=== PATIENT | male | born 1940 | race Caucasian/White ===

== ENCOUNTER → 2019-09-17 | Outpatient (CLI) | payer MEDICARE, OTHER ==
--- NOTE | 2019-09-18 09:10 | RADIOLOGY REPORT (SQ) ---
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 TECHNIQUE: Static and realtime castillo scale imaging of the scrotum and testes. Selected color Doppler and spectral images recorded to document blood flow. LIMITATIONS: None. FINDINGS: RIGHT: TESTICLE: Normal size. Normal echotexture. Normal blood flow. No mass. EPIDIDYMIS: Small 4 mm cyst. HYDROCELE OR VARICOCELE: Hydrocele. HERNIA OR EXTRA-TESTICULAR MASS: No. OTHER: No other significant finding. LEFT: TESTICLE: Normal size. Normal echotexture. Normal blood flow. No mass. EPIDIDYMIS: Small 3 mm cyst. HYDROCELE OR VARICOCELE: Hydrocele. Varicocele. HERNIA OR EXTRA-TESTICULAR MASS: No. OTHER: No other significant finding. IMPRESSION: 1. BILATERAL HYDROCELES. VARICOCELE ON THE LEFT. 2. SMALL EPIDIDYMAL CYSTS. 3. NORMAL TESTICULAR ULTRASOUND. NO EVIDENCE OF TESTICULAR MASS OR TORSION. TECHNICAL DOCUMENTATION: JOB ID: [id number] [employer]- All Rights Reserved Reading location - IP/workstation name: [email or web address]
== END ==
LOC: RAD 17:29
PROVIDERS: ATTEND Physician Assistant
DX: I86.1 Scrotal varices (principal); N50.3 Cyst of epididymis; N43.3 Hydrocele, unspecified
CPT/HCPCS: 76870

== ENCOUNTER 2020-06-21 08:24 | Inpatient (IN) | payer MEDICARE ==
--- NOTE | 2020-06-21 08:56 | RADIOLOGY REPORT (SQ) ---
EXAM DESCRIPTION: CHEST SINGLE VIEW IMAGES COMPLETED DATE/TIME: 06/21/2020 7:37 am REASON FOR STUDY: bed 16 chest pain COMPARISON: None. EXAM PARAMETERS: NUMBER OF VIEWS: One view. TECHNIQUE: Single frontal radiographic view of the chest acquired. RADIATION DOSE: NA LIMITATIONS: None. FINDINGS: LUNGS AND PLEURA: Lungs are hyperinflated. No focal consolidation or pleural effusion. N o pneumothorax. MEDIASTINUM AND HILAR STRUCTURES: No masses. Contour normal. HEART AND VASCULAR STRUCTURES: Heart normal in size. Normal vasculature. BONES: No acute findings. HARDWARE: None in the chest. OTHER: No other significant finding. IMPRESSION: NO ACUTE RADIOGRAPHIC FINDING IN THE CHEST. TECHNICAL DOCUMENTATION: JOB ID: [id number] 2010 [employer] All Rights Reserved Reading location - IP/workstation name: [email or web address]
[2020-06-21 08:58] LABS: ABSOLUTE EOSINOPHILS # (AUTO) 0.5 10^3/uL (0.0-0.6); ABSOLUTE LYMPHOCYTES (AUTO) 1.9 10^3/uL (0.5-4.7); ABSOLUTE MONOCYTES (AUTO) 0.8 10^3/uL (0.1-1.4); ABSOLUTE NEUT (AUTO) 3.8 10^3/uL (1.7-8.2); BASOPHILS % (AUTO) 0.7 % (0-2); EOSINOPHILS % (AUTO) 6.9 % (0-6); HEMATOCRIT 36.3 % (37.9-51.0); HEMOGLOBIN 12.1 g/dL (13.5-17.0); LYMPHOCYTES % (AUTO) 27.4 % (13-45); MEAN CORPUSCULAR HEMOGLOBIN 27.9 pg (27.0-33.4); MEAN CORPUSCULAR HGB CONC 33.4 g/dL (32.0-36.0); MEAN CORPUSCULAR VOLUME 83 fl (80-97); MONOCYTES % (AUTO) 11.7 % (3-13); PLATELET COUNT 185 10^3/uL (150-450); RED BLOOD COUNT 4.36 10^6/uL (4.35-5.55); RED CELL DISTRIBUTION WIDTH 14.9 % (11.5-14.0); SEGMENTED NEUTROPHILS % (AUTO) 53.3 % (42-78); TOTAL CELLS COUNTED % (AUTO) 100 %; WHITE BLOOD COUNT 7.1 10^3/uL (4.0-10.5)
[2020-06-21 09:16] LABS: ALBUMIN 3.6 g/dL (3.5-5.0); CARBON DIOXIDE 26 mmol/L (22-30)
[2020-06-21 09:19] LABS: ANION GAP 5 (5-19); CHLORIDE 106 mmol/L (98-107)
[2020-06-21 09:20] LABS: ALKALINE PHOSPHATASE 56 U/L (38-126); ASPARTATE AMINO TRANSFERASE 26 U/L (17-59); BILIRUBIN,DIRECT 0.2 mg/dL (0.0-0.4); BILIRUBIN,TOTAL 1.3 mg/dL (0.2-1.3); BLOOD UREA NITROGEN 23 mg/dL (7-20); CREATINE KINASE 126 U/L (55-170); GLUCOSE 106 mg/dL (75-110); POTASSIUM 3.9 mmol/L (3.6-5.0)
[2020-06-21 09:29] LABS: CREATINE KINASE MB 1.95 ng/mL (<4.55); TROPONIN I 0.021 ng/mL
--- NOTE | 2020-06-21 10:46 | ER Document Report ---
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 He does follow a local primary care physician Dr. Elvira Ruiz. Patient states last night he was making a pie and felt some diaphoresis nausea, vomiting, and some anterior chest discomfort. It lasted only 1-1/2-hour. No shortness of breath, radiation to the arm, calf pain or leg swelling. No recent trips or travel. Patient states he had similar discomfort transiently this morning as well. No vomiting or diaphoresis at that time. He did take 325 aspirin. Patient feels much better. ROS: See HPI All other review of systems reviewed and otherwise negative Reviewed vital signs and nursing note as charted by RN. PHYSICAL EXAM: CONSTITUTIONAL: Alert and oriented and responds appropriately to questions. Well-appearing; well-nourished HEAD: Normocephalic; atraumatic EYES: PERRL; Conjunctivae clear, sclerae non-icteric CARD: Regular rate and rhythm; no murmurs; symmetric distal pulses RESP: Normal chest excursion without splinting or tachypnea; breath sounds clear and equal bilaterally ABD/GI: Normal bowel sounds; non-distended; soft, non-tender BACK: The back appears normal and is non-tender to palpation EXT: Normal ROM in all joints; non-tender to palpation; no edema SKIN: No acute lesions noted NEURO: CN 2-12 intact; 5/5 bilateral upper and lower extremity strength with sensation intact to light touch PSYCH: The patient's mood and manner are appropriate. Grooming and personal hygiene are appropriate. TRAVEL OUTSIDE OF THE [place] IN LAST 30 DAYS: No - Related Data Allergies/Adverse Reactions: acetaminophen [From Vicodin] Allergy (Verified 06/21/20 08:51) hydrocodone [From Vicodin] Allergy (Verified 06/21/20 08:51) Past Medical History - Social History Smoking Status: Unknown if Ever Smoked Family History: Reviewed & Not Pertinent Past Surgical History: Reports: Hx Cardiac Catheterization, Hx Cardiac Surgery - bypass Physical Exam - Vital signs Vitals: Resp Pulse Ox 12 93 06/21/20 08:40 06/21/20 08:40 Course - Re-evaluation Re-evalutation: Given the above history and physical examination, with a good story for ACS, we will obtain a cardiac panel, EKG, x-ray of the chest, and reassess. Given the patient's history as well as vital signs I do believe PE and dissection to be unlikely. Patient is currently chest pain-free. 06/21/20 10:44 Initial labs as recorded. The primary care physician is already come down to see the patient. Initial troponin as recorded. He would like a repeat troponin ordered at 1127 and if relatively unchanged, patient will be admitted to the [facility]. - Vital Signs Vital signs: Temp Pulse Resp BP Pulse Ox 97.5 F 12 121/67 97 06/21/20 08:51 06/21/20 10:01 06/21/20 10:01 06/21/20 08:51 - Laboratory Result Diagrams: 06/21/20 08:46 06/21/20 08:46 Laboratory results interpreted by me: 06/21/20 06/21/20 08:46 08:46 Hgb 12.1 L Hct 36.3 L RDW 14.9 H Eos % (Auto) 6.9 H Sodium 136.9 L BUN 23 H Creatinine 1.28 H Est GFR (MDRD) Non-Af 54 L Total Protein 6.0 L Discharge - Discharge Clinical Impression: Chest pain Qualifiers: Chest pain type: precordial pain Qualified Code(s): R07.2 - Precordial pain Condition: Good Disposition: ADMITTED INPATIENT Admitting Provider: Chauncey Unit Admitted: [facility] Referrals: VICTORINO RUIZ MD [Primary Care Provider] - Follow up as needed
[2020-06-21] MEDS ORDERED: IPRATROPIUM/ALBUTEROL 0.5-2.5 MG/3 ML AMPUL NEB PRN (12:29)
--- NOTE | 2020-06-21 12:49 | PDOC H&P ---
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 [place] with a history of the hypertension hyperlipidemia came to the emergency department with a complaint with chest pain and diaphoretic since yesterday According to the patient he ate yesterday some pie and other food and patient snorted the chest pain and not feeling well Patient's call the EMS and the patient is received the nitro in the emergency department patient's will do all the pain Patient is to have a stress test was done 2 years back at [place] according to the patient was all normal Patient usually lives in the [place] lasting seen in the office more than a year Patient has a history of the COPD patient is currently denied any cough no congestions no fever no chills No contact with any COVID Patient initial chest x-ray is negative cardiac enzymes the first was was normal second was slightly elevated no acute EKG changes At this point decided to admit the patient's with the significant risk factor for the coronary disease to rule out acute coronary syndromes Past Medical History Cardiac Medical History: Reports: Coronary Artery Disease, Myocardial Infarction, Hyperlipidema, Hypertension Pulmonary Medical History: Reports: Chronic Obstructive Pulmonary Disease (COPD) GI Medical History: Reports: Gastroesophageal Reflux Disease Past Surgical History Past Surgical History: Reports: Cardiac Catheterization, Coronary Artery Bypass Graft Social History Information Source: Patient Smoking Status: Unknown if Ever Smoked Electronic Cigarette use?: No Frequency of Alcohol Use: Occasional Hx Recreational Drug Use: No Family History Family History: Reviewed & Not Pertinent Parental Family History Reviewed: Yes Children Family History Reviewed: Yes Sibling(s) Family History Reviewed.: Yes Medication/Allergy Allergies/Adverse Reactions: acetaminophen [From Vicodin] Allergy (Verified 06/21/20 08:51) hydrocodone [From Vicodin] Allergy (Verified 06/21/20 08:51) Review of Systems Constitutional: ABSENT: chills, fever(s), headache(s), weight gain, weight loss Eyes: ABSENT: visual disturbances Ears: ABSENT: hearing changes Cardiovascular: PRESENT: chest pain. ABSENT: dyspnea on exertion, edema, orthropnea, palpitations Respiratory: ABSENT: cough, hemoptysis Gastrointestinal: ABSENT: abdominal pain, constipation, diarrhea, hematemesis, hematochezia, nausea, vomiting Genitourinary: ABSENT: dysuria, hematuria Musculoskeletal: ABSENT: joint swelling Integumentary: ABSENT: rash, wounds Neurological: ABSENT: abnormal gait, abnormal speech, confusion, dizziness, focal weakness, syncope Psychiatric: ABSENT: anxiety, depression, homidical ideation, suicidal ideation Endocrine: ABSENT: cold intolerance, heat intolerance, menstrual abnormalities, polydipsia, polyuria Hematologic/Lymphatic: ABSENT: easy bleeding, easy bruising, lymphadenopathy Physical Exam Vital Signs: Temp Pulse Resp BP Pulse Ox 97.5 F 16 116/72 100 06/21/20 08:51 06/21/20 11:01 06/21/20 11:01 06/21/20 11:01 Intake & Output 06/20/20 06/21/20 06/22/20 06:59 06:59 06:59 Weight 72.575 kg General appearance: PRESENT: no acute distress, well-developed, well-nourished Head exam: PRESENT: atraumatic, normocephalic Eye exam: PRESENT: conjunctiva pink, EOMI, PERRLA. ABSENT: scleral icterus Ear exam: PRESENT: normal external ear exam Mouth exam: PRESENT: moist, tongue midline Neck exam: PRESENT: full ROM. ABSENT: carotid bruit, JVD, lymphadenopathy, thyromegaly Respiratory exam: PRESENT: clear to auscultation gallo Cardiovascular exam: PRESENT: RRR. ABSENT: diastolic murmur, rubs, systolic murmur Pulses: PRESENT: normal dorsalis pedis pul, +2 pedal pulses bilateral Vascular exam: PRESENT: normal capillary refill GI/Abdominal exam: PRESENT: normal bowel sounds, soft. ABSENT: distended, guarding, mass, organolmegaly, rebound, tenderness Rectal exam: PRESENT: deferred Musculoskeletal exam: PRESENT: ambulatory Neurological exam: PRESENT: alert, awake, oriented to person, oriented to place, oriented to time, oriented to situation, CN II-XII grossly intact. ABSENT: motor sensory deficit Psychiatric exam: PRESENT: appropriate affect, normal mood. ABSENT: homicidal ideation, suicidal ideation Skin exam: PRESENT: dry, intact, warm. ABSENT: cyanosis, rash Results Laboratory Results: 06/21/20 08:46 06/21/20 08:46 06/21/20 06/21/20 08:46 08:46 WBC 7.1 RBC 4.36 Hgb 12.1 L Hct 36.3 L MCV 83 MCH 27.9 MCHC 33.4 RDW 14.9 H Plt Count 185 Seg Neutrophils % 53.3 Sodium 136.9 L Potassium 3.9 Chloride 106 Carbon Dioxide 26 Anion Gap 5 BUN 23 H Creatinine 1.28 H Est GFR ( Amer) > 60 Glucose 106 Calcium 9.0 Total Bilirubin 1.3 AST 26 Alkaline Phosphatase 56 Total Protein 6.0 L Albumin 3.6 06/21/20 06/21/20 06/21/20 08:46 08:46 11:35 Creatine Kinase 126 CK-MB (CK-2) 1.95 Troponin I 0.021 0.069 Impressions: Chest X-Ray 06/21/20 08:27 IMPRESSION: NO ACUTE RADIOGRAPHIC FINDING IN THE CHEST. Assessment & Plan - Diagnosis (1) Coronary artery disease Qualifiers: Coronary Disease-Associated Artery/Lesion type: bypass graft Associated angina: without angina Is this a current diagnosis for this admission?: Yes Plan: Admit the patient in IMCU consult the cardiology (2) Chronic obstructive pulmonary disease Qualifiers: COPD type: unspecified COPD Qualified Code(s): J44.9 - Chronic obstructive pulmonary disease, unspecified Is this a current diagnosis for this admission?: Yes Plan: Continues on nebulizer treatments as needed (3) Hypertension Qualifiers: Hypertension type: essential hypertension Qualified Code(s): I10 - Essential (primary) hypertension Is this a current diagnosis for this admission?: Yes Plan: Currently all stable (4) Chest pain Qualifiers: Chest pain type: precordial pain Qualified Code(s): R07.2 - Precordial pain Is this a current diagnosis for this admission?: Yes Plan: Admit the patient on IMCU for rule out the acute coronary syndromes consult cardiology - Time Time Spent: 50 to 70 Minutes Medications reviewed and adjusted accordingly: Yes Anticipated Discharge Disposition: Home, Self Care Anticipated Discharge Timeframe: within 48 hours - Inpatient Certification Based on my medical assessment, after consideration of the patient's comorbidities, presenting symptoms, or acuity I expect that the services needed warrant INPATIENT care.: Yes I certify that my determination is in accordance with my understanding of Medicare's requirements for reasonable and necessary INPATIENT services [42 CFR 412.3e].: Yes Medical Necessity: Need Close Monitoring Due to Risk of Patient Decompensation, Need for Nebulizer Therapy and Monitoring of Response Post Hospital Care: D/C Interventional Pain Physician Documentation - Plan Summary Plan Summary: Admit the patient in IMCU see MD orders
[2020-06-21] MEDS ORDERED: ENOXAPARIN SODIUM INJ 40 MG/0.4 ML DISP.SYRIN SUBCUT SCH (14:00)
[2020-06-21] MEDS ORDERED: TRAMADOL HCL 50 MG TABLET PO PRN (15:00)
[2020-06-21] MEDS ORDERED: (PENDING PHARMACY ID) (Albuterol Sulfate 2 PUFF) IH PRN (15:00)
[2020-06-21] MEDS ORDERED: ALBUTEROL SULFATE HFA (90 MCG/PUFF) 8 GM MDI IH PRN (15:06)
[2020-06-21] MEDS ORDERED: PANTOPRAZOLE SODIUM 40 MG TABLET.DR PO SCH (17:00)
[2020-06-21] MEDS ORDERED: METOPROLOL TARTRATE 50 MG TABLET PO SCH (18:00)
[2020-06-21 18:53] LABS: CREATINE KINASE MB 9.7 ng/mL (<4.55)
[2020-06-21 18:55] LABS: TROPONIN I 0.645 ng/mL
[2020-06-21] MEDS ORDERED: ENOXAPARIN SODIUM INJ 80 MG/0.8 ML DISP.SYRIN SUBCUT ONE (19:30)
--- NOTE | 2020-06-21 20:20 | EKG REPORT ---
SEVERITY:- ABNORMAL ECG - SINUS RHYTHM CONSIDER ANTEROSEPTAL INFARCT BORDERLINE T ABNORMALITIES, INFERIOR LEADS : Confirmed by: Quyen Golden 21-Jun-2020 20:19:53
--- NOTE | 2020-06-21 20:36 | PDOC CONSULTATION ---
Consultation-Blank Consultation: CARDIOLOGY CONSULTATION by Dr. Feli Lacey on 06/21/2020. Patient seen initially at 1 PM and subsequently again at 7:30 PM. 60 minutes spent as patient more than 50% of time spent in direct patient care. REASON FOR CONSULTATION: Chest pain and non-ST elevation WA. CONSULT REQUESTING PHYSICIAN: Dr. Grossman. HISTORY OF PRESENT ILLNESS: Patient is 79-year-old male with known history of coronary artery disease, old myocardial infarction 2006 after which he had a catheterization and this led to a coronary bypass graft surgery in clinic to correct. States that last night he ate something and subsequently had some epigastric discomfort comfort with nausea and vomiting. There was no hemoptysis. The details of the coronary artery bypass graft surgery is not known. There are no vein markers and the chest x-ray and hence cannot be sure as to how many coronary arteries were bypassed. Who is been free of anginal symptoms states that last night he ate something and after dinner felt discomfort in his epigastrium and had nausea and vomited once. He states there was no hematemesis or armand blood in his vomitus. Subsequently the patient had left front of the chest tightness and discomfort which radiated to the left shoulder. The episode started after the patient had severe diaphoresis. There is no shortness of breath palpitations. 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 On the way to the hospital he was given 3 sublingual nitroglycerin sprays and after the third 5 minutes later he was chest pain-free. His EKG shows some minor nonspecific changes and poor R wave progression leads V1 to V4 probably secondary to old anterior WA. The patient initial troponin I was negative and subsequently came positive for a non-ST elevation WA at 0.654. At present the patient is chest pain-free since admission. He denies shortness of breath PND orthopnea palpitations or syncope or near syncope. The patient states that about a year and a half ago in [facility] he had a stress test and was advised to continue medical treatment and did not need any percutaneous intervention. He has no history of COPD or asthma. He has no history of sleep apnea. There is no history of palpitations syncope or heart failure. There is no palpitations. There is no history of diabetes mellitus or thyroid disease. There is a history of hyperlipidemia and depression. The depression is well controlled with medication. He has no symptoms suggestive of COVID infectiion. The patient has had no contact with COVID positive patients. Past Medical History Cardiac Medical History: Reports: Coronary Artery Disease, Myocardial Infarction, Hyperlipidema, Hypertension Pulmonary Medical History: Reports: Chronic Obstructive Pulmonary Disease (COPD) GI Medical History: Reports: Gastroesophageal Reflux Disease Past Surgical History Past Surgical History: Reports: Cardiac Catheterization, Coronary Artery Bypass Graft Albuterol Sulfate [Proair Hfa Inhalation Aerosol 8.5 gm Mdi] 2 puff IH Q6HP PRN 06/21/20 Amlodipine Besylate [Norvasc 5 mg Tablet] 5 mg PO DAILY 06/21/20 Aspirin [Adult Aspirin Regimen] 81 mg PO DAILY 06/21/20 Escitalopram Oxalate [Lexapro 10 mg Tablet] 10 mg PO DAILY 06/21/20 Metoprolol Tartrate [Lopressor] 50 mg PO BID 06/21/20 Pravastatin Sodium 40 mg PO DAILY 06/21/20 Tramadol HCl [Ultram] 50 mg PO DAILYP PRN 06/21/20 Social History Information Source: Patient Smoking Status: He has never smoked. Electronic Cigarette use?: No Frequency of Alcohol Use: Occasional Hx Recreational Drug Use: No RESUSCITATION STATUS: The patient is a full code. His son is his surrogate healthcare decision maker. Family History Family History: Positive for hypertension. No history of coronary artery disease in the parents. Parental Family History Reviewed: Yes Children Family History Reviewed: Yes Sibling(s) Family History Reviewed.: Yes Medication/Allergy Allergies/Adverse Reactions: acetaminophen [From Vicodin] Allergy (Verified 06/21/20 08:51) .hydrocodone [From Vicodin] Allergy (Verified 06/21/20 08:51) Current Medications Generic Name Dose Route Start Last Admin Trade Name Freq PRN Reason Stop Dose Admin Albuterol 2 puff 06/21/20 15:06 Ventolin Hfa 8 Gm Mdi IH 07/21/20 15:05 Q6HP PRN WHEEZING Albuterol/Ipratropium 3 ml 06/21/20 12:29 Duoneb 3 Ml Ampul NEB 07/21/20 12:28 RTQ6HP PRN SHORTNESS OF BREATH Amlodipine Besylate 5 mg 06/22/20 10:00 Norvasc 5 Mg Tablet PO 07/22/20 09:59 DAILY [facility] Aspirin 81 mg 06/22/20 10:00 Ecotrin 81 Mg Ec Tablet PO 07/22/20 09:59 DAILY [facility] Atorvastatin Calcium 10 mg 06/21/20 22:00 06/21/20 22:18 Lipitor 10 Mg Tablet PO 07/21/20 21:59 10 mg QHS YASMIN Administration Enoxaparin Sodium 80 mg 06/22/20 06:00 Lovenox Inj 80 Mg/0.8 Ml Disp.Syrin SUBCUT 07/22/20 05:59 Q12A [facility] Escitalopram Oxalate 10 mg 06/22/20 10:00 Lexapro 10 Mg Tablet PO 07/22/20 09:59 DAILY [facility] Metoprolol Tartrate 50 mg 06/21/20 18:00 06/21/20 17:09 Lopressor 50 Mg Tablet PO 07/21/20 17:59 50 mg BID YASMIN Administration Pantoprazole Sodium 40 mg 06/21/20 17:00 06/21/20 17:[address] Tablet PO 07/21/20 16:59 40 mg BID@0600,1700 YASMIN Administration Tramadol HCl 50 mg 06/21/20 15:00 Ultram 50 Mg Tablet PO 06/28/20 14:59 DAILYP PRN FOR PAIN Discontinued Medications Generic Name Dose Route Start Last Admin Trade Name Freq PRN Reason Stop Dose Admin Enoxaparin Sodium 40 mg 06/21/20 14:00 06/21/20 16:43 Lovenox Inj 40 Mg/0.4 Ml Disp.Syrin SUBCUT 07/21/20 13:59 Not Given DAILY [facility] Enoxaparin Sodium 80 mg 06/21/20 19:30 06/21/20 20:30 Lovenox Inj 80 Mg/0.8 Ml Disp.Syrin SUBCUT 06/21/20 19:31 80 mg NOW ONE Administration Review of Systems Constitutional: ABSENT: chills, fever(s), headache(s), weight gain, weight loss Eyes: ABSENT: visual disturbances Ears: ABSENT: hearing changes Cardiovascular: PRESENT: chest pain. ABSENT: dyspnea on exertion, edema, orthropnea, palpitations Respiratory: ABSENT: cough, hemoptysis Gastrointestinal: ABSENT: abdominal pain, constipation, diarrhea, hematemesis, hematochezia, nausea, vomiting Genitourinary: ABSENT: dysuria, hematuria Musculoskeletal: ABSENT: joint swelling Integumentary: ABSENT: rash, wounds Neurological: ABSENT: abnormal gait, abnormal speech, confusion, dizziness, focal weakness, syncope Psychiatric: ABSENT: anxiety, depression, homidical ideation, suicidal ideation Endocrine: ABSENT: cold intolerance, heat intolerance, menstrual abnormalities, polydipsia, polyuria Hematologic/Lymphatic: ABSENT: easy bleeding, easy bruising, lymphadenopathy PHYSICAL EXAMINATION: The patient is well-built and well-nourished in no acute distress. At present patient is chest pain-free. HEAD: Head is atraumatic normocephalic. Eyes: Pupils are equal round regular reactive light accommodation extraocular Selected Entries 06/21/20 06/21/20 19:35 20:00 Temperature 98.4 F Temperature Oral Source Pulse Rate 58 L Heart Rate ( 62 Monitors) Respiratory 16 Rate Blood Pressure 139/54 H Blood Pressure 82 Mean BP Location Right Arm BP Position Supine O2 Sat by Pulse 100 Oximetry Oxygen Delivery Room Air Method movements are normal there is no congenital pallor there is no scleral icterus. Ears: External auditory canals are clear, there are no lesions of the pinna. Nose: No deviated nasal septum and no inflammation of the nasal mucous membrane. Mouth: Mucous membranes of mouth are moist tongue is moist there is no ulcers there is no bleeding from the gums. Throat: There is no redness of the oropharynx there is no exudates. Skin: There is no petechia or ecchymosis there is no skin lesions or skin rashes. Neck: Neck is supple there is no JVD caroti ds equal there is no bruit there is no lymphadenopathy there is no neck stiffness. There is no goiter trachea central lungs: Lungs are clear to auscultation percussion there is no accessory muscles of respiration in use. There is no rhonchi rales or wheezing. There is no chest wall tenderness. HEART: S1-S2 is heard there is no S3 gallop there is no S4 gallop S1 is of normal intensity. There is no rub. The systolic murmur in the left sternal border and apex without radiation. Abdomen: Abdomen is soft nontender there is no paraspinal megaly bowel sounds well heard there is no tender areas of masses. There is no rebound guarding or rigidity. Extremities: Femorals are well felt there is no femoral bruits neck pulses are well felt there is no pedal edema there is no DVT or cellulitis there is no cyanosis or clubbing there is no DVT or cellulitis. There is no calf tenderness. 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 Psychiatric: The patient judgment and insight are intact and her affect is normal. ekg #1: Sinus rhythm. Probable old anteroseptal WA. Minor borderline nonspecific T changes inferior leads. The patient second EKG is unchanged except for interpolated PVC. Labs- Entire Visit 06/21/20 06/21/20 06/21/20 08:46 08:46 08:46 WBC 7.1 RBC 4.36 Hgb 12.1 L Hct 36.3 L MCV 83 MCH 27.9 MCHC 33.4 RDW 14.9 H Plt Count 185 Lymph % (Auto) 27.4 Walker % (Auto) 11.7 Eos % (Auto) 6.9 H Baso % (Auto) 0.7 Absolute Neuts (auto) 3.8 Absolute Lymphs (auto) 1.9 Absolute Monos (auto) 0.8 Absolute Eos (auto) 0.5 Absolute Basos (auto) 0.0 Seg Neutrophils % 53.3 Sodium 136.9 L Potassium 3.9 Chloride 106 Carbon Dioxide 26 Anion Gap 5 BUN 23 H Creatinine 1.28 H Est GFR ( Amer) > 60 Est GFR (MDRD) Non-Af 54 L Glucose 106 Calcium 9.0 Total Bilirubin 1.3 Direct Bilirubin 0.2 Neonat Total Bilirubin Not Reportable Neonat Direct Bilirubin Not Reportable Neonat Indirect Bili Not Reportable AST 26 ALT 18 Alkaline Phosphatase 56 Creatine Kinase 126 CK-MB (CK-2) 1.95 Troponin I 0.021 Total Protein 6.0 L Albumin 3.6 06/21/20 06/21/20 06/21/20 11:35 11:35 11:35 WBC RBC Hgb Hct MCV MCH MCHC RDW Plt Count Lymph % (Auto) Walker % (Auto) Eos % (Auto) Baso % (Auto) Absolute Neuts (auto) Absolute Lymphs (auto) Absolute Monos (auto) Absolute Eos (auto) Absolute Basos (auto) Seg Neutrophils % Sodium Potassium Chloride Carbon Dioxide Anion Gap BUN Creatinine Est GFR ( Amer) Est GFR (MDRD) Non-Af Glucose Calcium Total Bilirubin Direct Bilirubin Neonat Total Bilirubin Neonat Direct Bilirubin Neonat Indirect Bili AST ALT Alkaline Phosphatase Creatine Kinase 113 CK-MB (CK-2) 2.07 Troponin I 0.069 Cancelled Total Protein Albumin 06/21/20 06/21/20 18:09 18:09 WBC RBC Hgb Hct MCV MCH MCHC RDW Plt Count Lymph % (Auto) Walker % (Auto) Eos % (Auto) Baso % (Auto) Absolute Neuts (auto) Absolute Lymphs (auto) Absolute Monos (auto) Absolute Eos (auto) Absolute Basos (auto) Seg Neutrophils % Sodium Potassium Chloride Carbon Dioxide Anion Gap BUN Creatinine Est GFR ( Amer) Est GFR (MDRD) Non-Af Glucose Calcium Total Bilirubin Direct Bilirubin Neonat Total Bilirubin Neonat Direct Bilirubin Neonat Indirect Bili AST ALT Alkaline Phosphatase Creatine Kinase 155 CK-MB (CK-2) 9.70 H Troponin I 0.645 Total Protein Albumin Chest X-Ray 06/21/20 08:27 IMPRESSION: NO ACUTE RADIOGRAPHIC FINDING IN THE CHEST. IMPRESSION/RECOMMENDATION: 1. Non-ST elevation WA. In view of prior history of WA and coronary artery bypass graft surgery patient higher risk than normal. Hence strongly recommend cardiac catheterization. We will continue current medications as the patient is pain-free. But will increase the patient's Lovenox to 1 mg/kg subcutaneously every 12 hours and arrange for transfer to tertiary care center which is why. Patient agreeable. This is the risk benefits and risks and perceived cardiac catheterization have been discussed in detail with the patient. 2. Coronary artery disease. History of old WA. Recent unstable anginal symptoms. This culminated in a non-ST relation WA this admission. 3. Coronary bypass graft surgery: Records awaited from [facility]. 4. Hypertension: Blood pressure well controlled 5. Hyperlipidemia: Continue statin 6. Depression: Currently appears to be asymptomatic on medication. Medications reviewed. Medications adjusted and added. Medical regimen and management plan discussed with attending provider on the case. The case has been discussed in detail with the patient including the troponin elevation consistent with non-ST relation WA. The case has been discussed with the [employer] dehydrogenation converter helper at [facility] in [place]. He has been accepted for transfer. The patient will follow-up with me in the office after his discharge after cardiac catheterization at [facility]. Medical decision making is of high complexity. 60 minutes spent as patient more than 50% time spent on direct patient care.
--- NOTE | 2020-06-21 21:23 | PDOC TRANSFER SUMMARY ---
General Admission Date/PCP: 06/21/20 11:06 VICTORINO RUIZ MD Admission Date: 06/21/20 Transfer Date: 06/21/20 Accepting Facility: [facility] Resuscitation Status: Full Code - Transfer Diagnosis (1) Non-ST elevated myocardial infarction (non-STEMI) Is this a current diagnosis for this admission?: Yes (2) Coronary artery disease Is this a current diagnosis for this admission?: Yes (3) Chronic obstructive pulmonary disease Is this a current diagnosis for this admission?: Yes (4) Hypertension Is this a current diagnosis for this admission?: Yes (5) Chest pain Is this a current diagnosis for this admission?: Yes - Transfer Medications Home Medications: Albuterol Sulfate [Proair Hfa Inhalation Aerosol 8.5 gm Mdi] 2 puff IH Q6HP PRN 06/21/20 Amlodipine Besylate [Norvasc 5 mg Tablet] 5 mg PO DAILY 06/21/20 Aspirin [Adult Aspirin Regimen] 81 mg PO DAILY 06/21/20 Escitalopram Oxalate [Lexapro 10 mg Tablet] 10 mg PO DAILY 06/21/20 Metoprolol Tartrate [Lopressor] 50 mg PO BID 06/21/20 Pravastatin Sodium 40 mg PO DAILY 06/21/20 Tramadol HCl [Ultram] 50 mg PO DAILYP PRN 06/21/20 Transfer Medications: Current Medications Albuterol (Ventolin Hfa 8 Gm Mdi) 2 puff IH Q6HP PRN PRN Reason: WHEEZING Stop: 07/21/20 15:05 Albuterol/Ipratropium (Duoneb 3 Ml Ampul) 3 ml NEB RTQ6HP PRN PRN Reason: SHORTNESS OF BREATH Stop: 07/21/20 12:28 Amlodipine Besylate (Norvasc 5 Mg Tablet) 5 mg PO DAILY [facility] Stop: 07/22/20 09:59 Aspirin (Ecotrin 81 Mg Ec Tablet) 81 mg PO DAILY [facility] Stop: 07/22/20 09:59 Atorvastatin Calcium (Lipitor 10 Mg Tablet) 10 mg PO QHS YASMIN Stop: 07/21/20 21:59 Enoxaparin Sodium (Lovenox Inj 80 Mg/0.8 Ml Disp.Syrin) 80 mg SUBCUT Q12A [facility] Stop: 07/22/20 05:59 Escitalopram Oxalate (Lexapro 10 Mg Tablet) 10 mg PO DAILY [facility] Stop: 07/22/20 09:59 Metoprolol Tartrate (Lopressor 50 Mg Tablet) 50 mg PO BID [facility] Stop: 07/21/20 17:59 Last Admin: 06/21/20 17:09 Dose: 50 mg Documented by: Pantoprazole Sodium (Protonix [address] Tablet) 40 mg PO BID@0600,1700 YASMIN Stop: 07/21/20 16:59 Last Admin: 06/21/20 17:09 Dose: 40 mg Documented by: Tramadol HCl (Ultram 50 Mg Tablet) 50 mg PO DAILYP PRN PRN Reason: FOR PAIN Stop: 06/28/20 14:59 - Allergies Allergies/Adverse Reactions: acetaminophen [From Vicodin] Allergy (Verified 06/21/20 08:51) hydrocodone [From Vicodin] Allergy (Verified 06/21/20 08:51) Hospital Course Hospital Course: pt admitted for chest pain with known histroy of bypass in [address] mi by cardilogy and tranfer vidant for further evution pt is stable on tranfer Physical Exam Vital Signs: Temp Pulse Resp BP Pulse Ox 98.4 F 64 15 139/54 H 96 06/21/20 19:35 06/21/20 20:48 06/21/20 20:48 06/21/20 19:35 06/21/20 20:48 Intake & Output 06/20/20 06/21/20 06/22/20 06:59 06:59 06:59 Intake Total 740 Balance 740 Weight 79.6 kg General appearance: PRESENT: no acute distress, well-developed, well-nourished Head exam: PRESENT: atraumatic, normocephalic Eye exam: PRESENT: conjunctiva pink, EOMI, PERRLA. ABSENT: scleral icterus Ear exam: PRESENT: normal external ear exam Mouth exam: PRESENT: moist, tongue midline Neck exam: ABSENT: carotid bruit, JVD, lymphadenopathy, thyromegaly Respiratory exam: PRESENT: clear to auscultation gallo. ABSENT: rales, rhonchi, w heezes Cardiovascular exam: PRESENT: RRR. ABSENT: diastolic murmur, rubs, systolic murmur Pulses: PRESENT: normal dorsalis pedis pul Vascular exam: PRESENT: normal capillary refill GI/Abdominal exam: PRESENT: normal bowel sounds, soft. ABSENT: distended, guarding, mass, organolmegaly, rebound, tenderness Rectal exam: PRESENT: deferred Extremities exam: PRESENT: full ROM. ABSENT: calf tenderness, clubbing, pedal edema Neurological exam: PRESENT: alert, awake, oriented to person, oriented to place, oriented to time, oriented to situation, CN II-XII grossly intact. ABSENT: motor sensory deficit Psychiatric exam: PRESENT: appropriate affect, normal mood. ABSENT: homicidal ideation, suicidal ideation Skin exam: PRESENT: dry, intact, warm. ABSENT: cyanosis, rash Results Laboratory Results: 06/21/20 08:46 06/21/20 08:46 06/21/20 06/21/20 08:46 08:46 WBC 7.1 RBC 4.36 Hgb 12.1 L Hct 36.3 L MCV 83 MCH 27.9 MCHC 33.4 RDW 14.9 H Plt Count 185 Seg Neutrophils % 53.3 Sodium 136.9 L Potassium 3.9 Chloride 106 Carbon Dioxide 26 Anion Gap 5 BUN 23 H Creatinine 1.28 H Est GFR ( Amer) > 60 Glucose 106 Calcium 9.0 Total Bilirubin 1.3 AST 26 Alkaline Phosphatase 56 Total Protein 6.0 L Albumin 3.6 06/21/20 06/21/20 06/21/20 08:46 08:46 11:35 Creatine Kinase 126 CK-MB (CK-2) 1.95 Troponin I 0.021 0.069 06/21/20 06/21/20 06/21/20 11:35 11:35 18:09 Creatine Kinase 113 155 CK-MB (CK-2) 2.07 Troponin I Cancelled 06/21/20 18:09 Creatine Kinase CK-MB (CK-2) 9.70 H Troponin I 0.645 Impressions: Chest X-Ray 06/21/20 08:27 IMPRESSION: NO ACUTE RADIOGRAPHIC FINDING IN THE CHEST. Plan Time Spent: Greater than 30 Minutes - tranfer for cardiac intenvention
[2020-06-21] MEDS ORDERED: ATORVASTATIN CALCIUM 10 MG TABLET PO SCH (22:00)
[2020-06-21 23:37] VITALS: BP 142/60
--- NOTE | 2020-06-22 00:23 | EKG REPORT ---
SEVERITY:- ABNORMAL ECG - SINUS RHYTHM VENTRICULAR PREMATURE COMPLEX INTERPOLATED VENTRICULAR PREMATURE COMPLEX CONSIDER ANTEROSEPTAL INFARCT BORDERLINE T ABNORMALITIES, INFERIOR LEADS : Confirmed by: Quyen Golden 22-Jun-2020 00:22:34
[2020-06-22] MEDS ORDERED: ENOXAPARIN SODIUM INJ 80 MG/0.8 ML DISP.SYRIN SUBCUT SCH (06:00)
[2020-06-22] MEDS ORDERED: (PENDING PHARMACY ID) (Pravastatin Sodium [Pravastatin Sodium] 40 MG) PO SCH (10:00)
[2020-06-22] MEDS ORDERED: AMLODIPINE BESYLATE 5 MG TABLET PO SCH (10:00)
[2020-06-22] MEDS ORDERED: ASPIRIN 81 MG TABLET, ENT COATED PO SCH (10:00)
[2020-06-22] MEDS ORDERED: ESCITALOPRAM OXALATE 10 MG TABLET PO SCH (10:00)
== END 2020-06-21 23:48 | disposition short-term general hospital (02) | DRG 282 ==
LOC: ER 08:24 → EH 11:06 → 3W 12:50
PROVIDERS: ADMIT Family Medicine; ATTEND Family Medicine
DX: I21.4 Non-ST elevation (NSTEMI) myocardial infarction (principal); I25.10 Atherosclerotic heart disease of native coronary artery without angina pectoris; J44.9 Chronic obstructive pulmonary disease, unspecified; I10 Essential (primary) hypertension; E78.5 Hyperlipidemia, unspecified; Z95.1 Presence of aortocoronary bypass graft; I25.2 Old myocardial infarction; Z79.51 Long term (current) use of inhaled steroids; Z79.82 Long term (current) use of aspirin
CPT/HCPCS: 36415; 71045; 80053; 82550; 82553; 84484; 85025; 93005; 93010; 99285; J1650; J3490